=== PATIENT | male | born 1935 | race Caucasian/White ===

== ENCOUNTER 2018-11-27 15:39 | Emergency (ER) | payer MEDICARE ==
[2018-11-27] MEDS ORDERED: predniSONE 20 MG TAB ONE (16:14)
[2018-11-27] MEDS ORDERED: HYDROcodone/Acetaminophen 10/325 mg Tablet ONE (16:14)
[2018-11-27] MEDS ORDERED: Acetaminophen 500 MG TAB ONE (16:17)
--- NOTE | 2018-11-27 17:10 | RAD ---
TWO VIEWS RIGHT HIP: 11/27/18 HISTORY: Posterior right hip pain with onset of symptoms this morning. Patient pivoted and heard a popping armin nd. COMPARISON: None. FINDINGS: There is no evidence of a fracture or dislocation involving the right hip. 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 Vascular calcifications and phleboliths overlie the pelvis with vascul ar calcifications in the region of the femoral arteries. Degenerative changes seen involving the lowe r lumbar spine. IMPRESSION: No acute osseous abnormality right hip. POS: C
--- NOTE | 2018-11-27 19:03 | CT ---
CT OF PELVIS PERFORMED WITHOUT CONTRAST ENHANCEMENT: 11/27/18 HISTORY: Right hip pain after fall. The prostate is enlarged. There is some mild bladder wall thickening. No significant pelvic lymphaden opathy. The bones appear demineralized. There are marked arthritic changes in the lower lumbar spine. Severe disc narrowing at L4-5 and L5-S1. There is approximately 10 mm of spondylolisthesis of L4 on L5 and a pproximately 8 to 9 mm of L5 on S1. 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 There is an old injury related to the ischial tuberosity on the left. There are arthritic changes of both hips. T here is no signs of any right hip fracture. IMPRESSION: No evidence of acute fracture. Other findings as noted above. POS: DEREK
== END 2018-11-27 18:10 | disposition home or self-care (01) ==
LOC: SCSER 15:39
DX: M25.551 Pain in right hip (principal); I49.9 Cardiac arrhythmia, unspecified; I48.91 Unspecified atrial fibrillation; K21.9 Gastro-esophageal reflux disease without esophagitis; F32.9 Major depressive disorder, single episode, unspecified
CPT/HCPCS: 72192; J7512

== ENCOUNTER 2019-02-18 08:37 | Outpatient (CLI) | payer MEDICARE ==
--- NOTE | 2019-02-18 08:57 | RAD ---
Exam: Chest 2 views HISTORY:Dyspnea Comparison: 06/14/2015 FINDINGS: Lungs: Interstitial prominence, bilaterally. Cardiac silhouette:Stable Left-sided cardiac pacing device. Pulmonary vessels: Normal Pleural Spaces: Clear Pneumothorax: None Osseous abnormalities: None of acuity. IMPRESSION: No focal consolidation. Stable chest.
== END 2019-02-18 08:38 | disposition home or self-care (01) ==
LOC: RAD 08:37
PROVIDERS: ATTEND Internal Medicine Critical Care Medicine
DX: R06.00 Dyspnea, unspecified (principal)
CPT/HCPCS: 71046

== ENCOUNTER 2021-10-10 19:03 | Inpatient (IN) | payer MEDICARE ==
[2021-10-10] MEDS ORDERED: Ondansetron PF 4 MG/2 ML Vial ONE (19:16)
[2021-10-10] MEDS ORDERED: niCARdipine 25 MG/10 ML VIAL ONE (19:25)
[2021-10-10 19:40] LABS: #Eosinphils 0.2 thou/uL (0.0-0.7); #Lymphocytes 3.8 thou/uL (1.20-3.40); #Monocytes 0.6 thou/uL (0.11-0.59); #Neutrophils 3.8 thou/uL (1.40-6.50); %Basophils 0.4 % (0.0-1.0); %Eosinophils 2.5 % (0.0-10.0); %Lymphocytes 45.3 % (21.0-51.0); %Monocytes 7.1 % (0.0-10.0); %Neutrophils 44.8 % (42.0-75.0); Hemoglobin 11.9 g/dL (14.0-18.0); Mean Corpuscular Hemoglobin 32.8 pg (27.0-31.0); Mean Platelet Volume 7.2 fL (7.4-10.4); Platelet Count 239 thou/uL (130-400); RBC Distribution Width 13.1 % (11.5-14.5); Red Blood Cell (RBC) Count 3.63 mill/uL (4.70-6.10); White Blood Cell (WBC) Count 8.4 thou/uL (4.8-10.8)
[2021-10-10] MEDS ORDERED: ADMIXTURE FEE IV SCH (19:45)
[2021-10-10] MEDS ORDERED: HUMAN PROTHROMBIN COMPLX IV SCH (19:45)
[2021-10-10 19:49] LABS: INR-International Normal Ratio 1.2; PTT 26.5 sec (22.9-36.1); Prothrombin Time 15.3 sec (12.0-14.7)
[2021-10-10] MEDS ORDERED: Succinylcholine 200 MG/10 ml SYRINGE FS ONE (19:54)
[2021-10-10] MEDS ORDERED: Rocuronium Bromide 10 MG/ML (10ML VIAL) ONE (20:00)
[2021-10-10] MEDS ORDERED: fentaNYL Citrate/PF 100 MCG/2 ML SYRINGE ONE (20:05)
[2021-10-10 20:06] LABS: CK (CPK) 90 U/L (30-200); Magnesium 1.9 mg/dL (1.6-2.6)
[2021-10-10 20:08] LABS: ALT (SGPT) 12 U/L (8-55); AST (SGOT) 24 U/L (5-34); Albumin 4.2 g/dL (3.4-4.8); Alkaline Phosphatase 116 U/L (40-110); Anion Gap 19 mmol/L (10-20); BUN (Urea Nitrogen) 20 mg/dL (8.4-25.7); Bilirubin, Total 0.8 mg/dL (0.2-1.2); Calc. Creatinine Clearance 0 mL/min (70-130); Calcium 9.8 mg/dL (7.8-10.44); Carbon Dioxide 21 mmol/L (23-31); Chloride 103 mmol/L (98-107); Estimated GFR 78; Globulin 3.6 g/dL (2.4-3.5); Glucose 143 mg/dL (83-110); Potassium 3.4 mmol/L (3.5-5.1); Protein, Total 7.8 g/dL (5.8-8.1); Sodium 140 mmol/L (136-145)
[2021-10-10] MEDS ORDERED: Propofol 1,000 MG/100 ML VIAL IV ONE (20:10)
[2021-10-10] MEDS ORDERED: Bupivacaine 0.25% HCL 30 ML VIAL ONE (20:15)
[2021-10-10] MEDS ORDERED: Lidocaine 1% w/Epinephrine 1:100K 20 ML VIAL ONE (20:15)
[2021-10-10] MEDS ORDERED: Thrombin 5000 UNITS/5 ML VIAL ONE (20:15)
[2021-10-10] MEDS ORDERED: Bacitracin Zinc Ointment 30 gm TUBE ONE (20:15)
[2021-10-10] MEDS ORDERED: Phenylephrine 10 MG/ML VIAL ONE (20:20)
[2021-10-10] MEDS ORDERED: Lidocaine 0.5%/Epinephrine 1:200,000 50 ml Vial ONE ×2 (20:25→23:06)
[2021-10-10] MEDS ORDERED: Potassium Chloride 20 MEQ/100 ML PREMIX BAG ONE (20:28)
[2021-10-10] MEDS ORDERED: Insulin Regular 300 UNITS/3 ML VIAL SC PRN (20:57)
[2021-10-10] MEDS ORDERED: Dextrose 5% in Water 1,000 ML IV PRN (20:57)
[2021-10-10] MEDS ORDERED: Dextrose 50% Abboject 50 ML SYRINGE SLOW IVP PRN (20:57)
[2021-10-10] MEDS ORDERED: hydrALAZINE 20 MG/ML VIAL SLOW IVP PRN (20:57)
[2021-10-10] MEDS ORDERED: Ondansetron PF 4 MG/2 ML Vial IVP PRN (20:57)
[2021-10-10] MEDS ORDERED: fentaNYL Citrate-0.9 % NaCl/PF 100 ML IV SCH (21:15)
[2021-10-10] MEDS ORDERED: Fentanyl BOLUS 250 ML IVPB PRN (21:15)
[2021-10-10] MEDS ORDERED: DISCONTINUE PREVIOUS NARCOTIC PAIN MEDICATIONS AND BENZODIAZEPINES FS SCH (21:15)
[2021-10-10] MEDS ORDERED: Propofol 1,000 MG/100 ML VIAL IV PRN (21:15)
[2021-10-10] MEDS ORDERED: Ventilator Sedation Protocol 1 EACH FS SCH (21:15)
[2021-10-10] MEDS ORDERED: Propofol BOLUS 1,000 MG/100 ML VIAL IV PRN (21:15)
[2021-10-10 23:04] LABS: Actual Bicarbonate (HCO3a) 22.5 mEq/L (22-28); Base Excess (BEa) -0.7 mEq/L (-2.0 to +3.0); CO2 Tension 32.4 mmHg (35.0-45.0); Calcium, Ionized (arterial) 1.15 mmol/L (1.12-1.30); Carboxyhemoglobin (COHb) 0.1 gm% (0.0-3.0); Hemoglobin (Hb) 11.3 g/dL (14.0-18.0); O2 Tension (PaO2), arterial 362.1 mmHg (> 60.0); Potassium - ABG Lab 4.22 mmol/L (3.70-5.30); pH, Arterial 7.46 (7.35-7.45)
[2021-10-10 23:08] LABS: Puncture Site LBR
[2021-10-11] MEDS: Famotidine/PF 20 mg/2ml Vial SLOW IVP SCH ×3 (00:30→20:30)
[2021-10-11] MEDS: Acetaminophen 500 MG TAB PO SCH ×6 (00:30→23:24)
[2021-10-11] MEDS: Sodium Chloride 0.9% 1,000 ML IV SCH ×3 (00:31→12:46)
[2021-10-11 01:49] LABS: Bilirubin Negative (Negative); Blood, Urine 3+ (Negative); Clarity Turbid (Clear); Glucose, Urine (Dipstick) Normal (Negative); Ketone, Urine 10 mg/dL (Negative); Leukocyte Negative Leu/uL (Negative); Nitrite Negative (Negative); Protein, Urine (Dipstick) 50 mg/dL (Neg-Trace); RBC/HPF Greater than 50 HPF (0-3); Specific Gravity, Urine 1.025 (1.002-1.036); Squamous Epithelial 0-3 HPF (0-3); Urobilinogen Normal mg/dL (Less than 2); WBC/HPF 21-50 HPF (0-3); pH, Urine 5.5 (5.0-9.0)
[2021-10-11 01:58] LABS: Bacteria/HPF 1+ HPF (None Seen)
[2021-10-11 01:59] LABS: Urine Culture Reflex Yes Yes
[2021-10-11] MEDS ORDERED: Sodium Chloride 0.9% 500 ML IV SCH (02:30)
[2021-10-11 04:05] LABS: #Lymphocytes 1.1 thou/uL (1.20-3.40); #Monocytes 0.8 thou/uL (0.11-0.59); #Neutrophils 6.7 thou/uL (1.40-6.50); %Eosinophils 0.3 % (0.0-10.0); %Lymphocytes 12.9 % (21.0-51.0); %Monocytes 9.7 % (0.0-10.0); %Neutrophils 77.1 % (42.0-75.0); Hemoglobin 10.3 g/dL (14.0-18.0); Mean Corpuscular HGB CONC 32.4 g/dL (32.0-36.0); Mean Corpuscular Hemoglobin 33.4 pg (27.0-31.0); Mean Platelet Volume 7.6 fL (7.4-10.4); Platelet Count 204 thou/uL (130-400); Red Blood Cell (RBC) Count 3.09 mill/uL (4.70-6.10); White Blood Cell (WBC) Count 8.7 thou/uL (4.8-10.8)
[2021-10-11 04:12] LABS: INR-International Normal Ratio 1.2; PTT 30.6 sec (22.9-36.1); Prothrombin Time 14.9 sec (12.0-14.7)
[2021-10-11 04:26] LABS: Anion Gap 15 mmol/L (10-20); BUN (Urea Nitrogen) 21 mg/dL (8.4-25.7); Calc. Creatinine Clearance 60 mL/min (70-130); Calcium 8.8 mg/dL (7.8-10.44); Carbon Dioxide 23 mmol/L (23-31); Chloride 104 mmol/L (98-107); Estimated GFR 84; Glucose 141 mg/dL (83-110); Magnesium 1.8 mg/dL (1.6-2.6); Phosphorus 3.6 mg/dL (2.3-4.7); Potassium 4.3 mmol/L (3.5-5.1); Sodium 138 mmol/L (136-145)
[2021-10-11] MEDS: CEFAZOLIN 2 GM in Sodium Chloride 0.9% 100 ML IVPB SCH ×3 (05:16→21:11)
[2021-10-11 06:31] LABS: SARS-CoV-2 NAA Rapid Test Not Detected (NotDetected)
[2021-10-11] MEDS: hydrALAZINE 20 MG/ML VIAL SLOW IVP PRN ×2 (07:09→11:02)
[2021-10-11 07:37] LABS: Actual Bicarbonate (HCO3a) 23.2 mEq/L (22-28); Base Excess (BEa) -1.1 mEq/L (-2.0 to +3.0); CO2 Tension 37.2 mmHg (35.0-45.0); Calcium, Ionized (arterial) 1.11 mmol/L (1.12-1.30); Carboxyhemoglobin (COHb) 0.2 gm% (0.0-3.0); Hemoglobin (Hb) 11.7 g/dL (14.0-18.0); O2 Tension (PaO2), arterial 128.6 mmHg (> 60.0); Potassium - ABG Lab 4.05 mmol/L (3.70-5.30); pH, Arterial 7.41 (7.35-7.45)
[2021-10-11 08:01] LABS: Puncture Site RRA
[2021-10-11] MEDS: Senokot S 8.6-50 MG TAB PO SCH ×2 (09:08→20:30)
[2021-10-11] MEDS: Polyethylene Glycol 3350 17 GM Packet PO SCH (09:08)
[2021-10-11] MEDS ORDERED: Furosemide 20 MG/2 ML VIAL SLOW IVP SCH (15:30)
[2021-10-11] MEDS ORDERED: Morphine 2 MG/ML VIAL SLOW IVP PRN (20:44)
[2021-10-11] MEDS ORDERED: Morphine 4 MG/ML VIAL SLOW IVP PRN (20:44)
[2021-10-12] MEDS: hydrALAZINE 20 MG/ML VIAL SLOW IVP PRN ×2 (02:06→06:22)
[2021-10-12] MEDS: Acetaminophen 500 MG TAB PO SCH ×2 (05:31→19:27)
[2021-10-12] MEDS: Sodium Chloride 0.9% 1,000 ML IV SCH (06:30)
[2021-10-12 07:14] LABS: #Eosinphils 0.1 thou/uL (0.0-0.7); #Lymphocytes 1.3 thou/uL (1.20-3.40); #Monocytes 1.1 thou/uL (0.11-0.59); #Neutrophils 5.8 thou/uL (1.40-6.50); %Basophils 0.5 % (0.0-1.0); %Eosinophils 0.9 % (0.0-10.0); %Lymphocytes 16.2 % (21.0-51.0); %Monocytes 12.8 % (0.0-10.0); %Neutrophils 69.6 % (42.0-75.0); Hemoglobin 9.6 g/dL (14.0-18.0); Mean Corpuscular HGB CONC 32.2 g/dL (32.0-36.0); Mean Corpuscular Hemoglobin 32.9 pg (27.0-31.0); Platelet Count 174 thou/uL (130-400); Red Blood Cell (RBC) Count 2.92 mill/uL (4.70-6.10); White Blood Cell (WBC) Count 8.3 thou/uL (4.8-10.8)
[2021-10-12 07:41] LABS: Anion Gap 14 mmol/L (10-20); BUN (Urea Nitrogen) 15 mg/dL (8.4-25.7); Calc. Creatinine Clearance 76 mL/min (70-130); Calcium 8.5 mg/dL (7.8-10.44); Carbon Dioxide 23 mmol/L (23-31); Chloride 106 mmol/L (98-107); Estimated GFR 89; Glucose 107 mg/dL (83-110); Magnesium 1.7 mg/dL (1.6-2.6); Phosphorus 2.5 mg/dL (2.3-4.7); Potassium 3.3 mmol/L (3.5-5.1); Sodium 140 mmol/L (136-145)
[2021-10-12] MEDS ORDERED: Potassium Phosphate 30 MMOL, Magnesium Sulfate 3 GM in Sodium Chloride 0.9% 250 ML 250 ML IVPB SCH (09:00)
[2021-10-12] MEDS ORDERED: Magnesium 2 GM/50 ML(in water) 3 GM in Premix Bag 1 BAG IVPB SCH (09:00)
[2021-10-12] MEDS ORDERED: Amlodipine 5 MG TAB PO SCH (09:00)
[2021-10-12] MEDS ORDERED: Furosemide 20 MG/2 ML VIAL SLOW IVP SCH (09:30)
[2021-10-12] MEDS ORDERED: Tamsulosin HCl 0.4 MG CAP PO SCH (09:45)
[2021-10-12] MEDS: Famotidine/PF 20 mg/2ml Vial SLOW IVP SCH (10:16)
[2021-10-12] MEDS: Polyethylene Glycol 3350 17 GM Packet PO SCH (10:17)
[2021-10-12] MEDS: Senokot S 8.6-50 MG TAB PO SCH ×2 (19:25→21:25)
[2021-10-12] MEDS ORDERED: Acetaminophen 500 MG TAB PO SCH ×2 (19:56→20:15)
[2021-10-12] MEDS ORDERED: Morphine 2 MG/ML VIAL SLOW IVP PRN (19:57)
[2021-10-12] MEDS: Carvedilol 6.25 MG TAB PO SCH (21:25)
[2021-10-13 06:19] LABS: #Eosinphils 0.2 thou/uL (0.0-0.7); #Lymphocytes 1.4 thou/uL (1.20-3.40); #Monocytes 1.1 thou/uL (0.11-0.59); #Neutrophils 5.6 thou/uL (1.40-6.50); %Basophils 0.5 % (0.0-1.0); %Eosinophils 2.2 % (0.0-10.0); %Lymphocytes 17.1 % (21.0-51.0); %Monocytes 12.7 % (0.0-10.0); %Neutrophils 67.5 % (42.0-75.0); Hemoglobin 9.8 g/dL (14.0-18.0); Mean Corpuscular HGB CONC 32.4 g/dL (32.0-36.0); Mean Corpuscular Hemoglobin 33.3 pg (27.0-31.0); Mean Platelet Volume 7.3 fL (7.4-10.4); Platelet Count 175 thou/uL (130-400); Red Blood Cell (RBC) Count 2.94 mill/uL (4.70-6.10); White Blood Cell (WBC) Count 8.3 thou/uL (4.8-10.8)
[2021-10-13 06:43] LABS: Anion Gap 14 mmol/L (10-20); BUN (Urea Nitrogen) 13 mg/dL (8.4-25.7); Calc. Creatinine Clearance 77 mL/min (70-130); Calcium 8.7 mg/dL (7.8-10.44); Carbon Dioxide 26 mmol/L (23-31); Chloride 102 mmol/L (98-107); Estimated GFR 90; Glucose 99 mg/dL (83-110); Magnesium 2.1 mg/dL (1.6-2.6); Phosphorus 2.1 mg/dL (2.3-4.7); Potassium 3.4 mmol/L (3.5-5.1); Sodium 139 mmol/L (136-145)
[2021-10-13] MEDS ORDERED: Potassium Phosphate 30 MMOL in Sodium Chloride 0.9% 250 ML 250 ML IVPB SCH (09:00)
[2021-10-13] MEDS: Donepezil HCl 10 MG TAB PO SCH (09:28)
[2021-10-13] MEDS: Atorvastatin Calcium 20 MG TAB PO SCH (09:28)
[2021-10-13] MEDS: Tamsulosin HCl 0.4 MG CAP PO SCH (09:28)
[2021-10-13] MEDS: Venlafaxine HCl XR 150 MG CAP PO SCH (09:28)
[2021-10-13] MEDS: Senokot S 8.6-50 MG TAB PO SCH ×2 (09:28→20:27)
[2021-10-13] MEDS: Carvedilol 6.25 MG TAB PO SCH ×2 (09:29→20:28)
[2021-10-13] MEDS: Losartan 25 MG TAB PO SCH (09:45)
[2021-10-13] MEDS: Polyethylene Glycol 3350 17 GM Packet PO SCH (12:56)
[2021-10-13] MEDS: hydrALAZINE 20 MG/ML VIAL SLOW IVP PRN ×2 (16:46→20:25)
[2021-10-14] MEDS: Acetaminophen 500 MG TAB PO SCH ×4 (00:51→17:14)
[2021-10-14] MEDS: hydrALAZINE 20 MG/ML VIAL SLOW IVP PRN (01:17)
[2021-10-14 03:50] LABS: #Eosinphils 0.2 thou/uL (0.0-0.7); #Lymphocytes 1.3 thou/uL (1.20-3.40); #Monocytes 0.8 thou/uL (0.11-0.59); #Neutrophils 5.1 thou/uL (1.40-6.50); %Basophils 0.5 % (0.0-1.0); %Eosinophils 2.3 % (0.0-10.0); %Lymphocytes 17.3 % (21.0-51.0); %Monocytes 10.6 % (0.0-10.0); %Neutrophils 69.3 % (42.0-75.0); Mean Corpuscular HGB CONC 32.5 g/dL (32.0-36.0); Mean Corpuscular Hemoglobin 33.3 pg (27.0-31.0); Mean Platelet Volume 7.1 fL (7.4-10.4); Platelet Count 185 thou/uL (130-400); Red Blood Cell (RBC) Count 3.01 mill/uL (4.70-6.10); White Blood Cell (WBC) Count 7.4 thou/uL (4.8-10.8)
[2021-10-14 04:15] LABS: Anion Gap 14 mmol/L (10-20); BUN (Urea Nitrogen) 17 mg/dL (8.4-25.7); Calc. Creatinine Clearance 82 mL/min (70-130); Calcium 9.1 mg/dL (7.8-10.44); Carbon Dioxide 23 mmol/L (23-31); Chloride 103 mmol/L (98-107); Estimated GFR 91; Glucose 100 mg/dL (83-110); Phosphorus 2.8 mg/dL (2.3-4.7); Potassium 3.9 mmol/L (3.5-5.1); Sodium 136 mmol/L (136-145)
[2021-10-14] MEDS: Tamsulosin HCl 0.4 MG CAP PO SCH (08:28)
[2021-10-14] MEDS: Losartan 25 MG TAB PO SCH (08:28)
[2021-10-14] MEDS: Venlafaxine HCl XR 150 MG CAP PO SCH (08:28)
[2021-10-14] MEDS: Carvedilol 6.25 MG TAB PO SCH ×2 (08:28→21:37)
[2021-10-14] MEDS: Atorvastatin Calcium 20 MG TAB PO SCH (08:28)
[2021-10-14] MEDS: Donepezil HCl 10 MG TAB PO SCH (08:28)
[2021-10-14] MEDS: Senokot S 8.6-50 MG TAB PO SCH ×2 (08:29→21:37)
[2021-10-14] MEDS: Polyethylene Glycol 3350 17 GM Packet PO SCH (08:29)
[2021-10-15] MEDS: Acetaminophen 500 MG TAB PO SCH ×4 (00:24→19:45)
[2021-10-15] MEDS: hydrALAZINE 20 MG/ML VIAL SLOW IVP PRN ×2 (01:43→21:10)
[2021-10-15] MEDS: Venlafaxine HCl XR 150 MG CAP PO SCH (07:52)
[2021-10-15] MEDS: Carvedilol 6.25 MG TAB PO SCH ×2 (07:53→21:39)
[2021-10-15] MEDS: Polyethylene Glycol 3350 17 GM Packet PO SCH (07:53)
[2021-10-15] MEDS: Donepezil HCl 10 MG TAB PO SCH (07:53)
[2021-10-15] MEDS: Losartan 25 MG TAB PO SCH (07:53)
[2021-10-15] MEDS: Atorvastatin Calcium 20 MG TAB PO SCH (07:53)
[2021-10-15] MEDS: Tamsulosin HCl 0.4 MG CAP PO SCH (07:53)
[2021-10-15] MEDS: Senokot S 8.6-50 MG TAB PO SCH ×2 (07:53→21:38)
[2021-10-16] MEDS: Acetaminophen 500 MG TAB PO SCH ×4 (00:04→17:21)
[2021-10-16] MEDS: hydrALAZINE 20 MG/ML VIAL SLOW IVP PRN (00:05)
[2021-10-16 04:18] LABS: Anion Gap 13 mmol/L (10-20); BUN (Urea Nitrogen) 19 mg/dL (8.4-25.7); Calc. Creatinine Clearance 77 mL/min (70-130); Calcium 9.1 mg/dL (7.8-10.44); Carbon Dioxide 24 mmol/L (23-31); Chloride 102 mmol/L (98-107); Estimated GFR 90; Glucose 127 mg/dL (83-110); Phosphorus 2.6 mg/dL (2.3-4.7); Potassium 3.6 mmol/L (3.5-5.1); Sodium 135 mmol/L (136-145)
[2021-10-16] MEDS: Carvedilol 6.25 MG TAB PO SCH ×2 (09:29→20:37)
[2021-10-16] MEDS: Senokot S 8.6-50 MG TAB PO SCH ×2 (09:30→22:38)
[2021-10-16] MEDS: Atorvastatin Calcium 20 MG TAB PO SCH (09:30)
[2021-10-16] MEDS: Donepezil HCl 10 MG TAB PO SCH (09:30)
[2021-10-16] MEDS: Tamsulosin HCl 0.4 MG CAP PO SCH (09:30)
[2021-10-16] MEDS: Venlafaxine HCl XR 150 MG CAP PO SCH (09:30)
[2021-10-16] MEDS: Polyethylene Glycol 3350 17 GM Packet PO SCH (09:31)
[2021-10-17] MEDS: Acetaminophen 500 MG TAB PO SCH ×4 (01:20→17:02)
[2021-10-17 04:03] LABS: Anion Gap 13 mmol/L (10-20); BUN (Urea Nitrogen) 18 mg/dL (8.4-25.7); Calc. Creatinine Clearance 79 mL/min (70-130); Calcium 8.8 mg/dL (7.8-10.44); Carbon Dioxide 25 mmol/L (23-31); Chloride 100 mmol/L (98-107); Estimated GFR 90; Glucose 107 mg/dL (83-110); Magnesium 1.9 mg/dL (1.6-2.6); Phosphorus 2.7 mg/dL (2.3-4.7); Potassium 3.7 mmol/L (3.5-5.1); Sodium 134 mmol/L (136-145)
[2021-10-17] MEDS: Senokot S 8.6-50 MG TAB PO SCH ×2 (08:09→20:26)
[2021-10-17] MEDS: Atorvastatin Calcium 20 MG TAB PO SCH (08:09)
[2021-10-17] MEDS: Venlafaxine HCl XR 150 MG CAP PO SCH (08:09)
[2021-10-17] MEDS: Carvedilol 6.25 MG TAB PO SCH ×2 (08:09→20:26)
[2021-10-17] MEDS: Tamsulosin HCl 0.4 MG CAP PO SCH (08:09)
[2021-10-17] MEDS: Polyethylene Glycol 3350 17 GM Packet PO SCH (08:09)
[2021-10-17] MEDS: Donepezil HCl 10 MG TAB PO SCH (08:09)
[2021-10-17] MEDS: Famotidine 20 MG TAB PO SCH (20:26)
[2021-10-18] MEDS: Acetaminophen 500 MG TAB PO SCH ×4 (00:12→17:43)
[2021-10-18] MEDS: Tamsulosin HCl 0.4 MG CAP PO SCH (08:09)
[2021-10-18] MEDS: Atorvastatin Calcium 20 MG TAB PO SCH (08:09)
[2021-10-18] MEDS: Senokot S 8.6-50 MG TAB PO SCH ×2 (08:09→21:12)
[2021-10-18] MEDS: Donepezil HCl 10 MG TAB PO SCH (08:09)
[2021-10-18] MEDS: Polyethylene Glycol 3350 17 GM Packet PO SCH (08:10)
[2021-10-18] MEDS: Carvedilol 6.25 MG TAB PO SCH ×2 (08:10→21:12)
[2021-10-18] MEDS: Venlafaxine HCl XR 150 MG CAP PO SCH (08:10)
[2021-10-18] MEDS: Famotidine 20 MG TAB PO SCH (08:10)
[2021-10-18 12:24] VITALS: BMI 23.8
[2021-10-19] MEDS: Acetaminophen 500 MG TAB PO SCH ×3 (01:16→12:25)
[2021-10-19] MEDS: Carvedilol 6.25 MG TAB PO SCH (09:18)
[2021-10-19] MEDS: Atorvastatin Calcium 20 MG TAB PO SCH (09:18)
[2021-10-19] MEDS: Tamsulosin HCl 0.4 MG CAP PO SCH (09:18)
[2021-10-19] MEDS: Donepezil HCl 10 MG TAB PO SCH (09:19)
[2021-10-19] MEDS: Venlafaxine HCl XR 150 MG CAP PO SCH (09:19)
[2021-10-19] MEDS: Polyethylene Glycol 3350 17 GM Packet PO SCH (09:19)
[2021-10-19] MEDS: Senokot S 8.6-50 MG TAB PO SCH (09:20)
[2021-10-19 11:19] VITALS: TEMP 98.7
[2021-10-19 15:52] VITALS: BP 134/66
== END 2021-10-19 17:45 | DRG 25 ==
LOC: ERS 19:03 → SDC/OP 21:13 → CCU 22:21 → SJJU 10-12 11:24 → IMCU/EMU 10-13 14:59
PROVIDERS: ADMIT Surgery; ATTEND Surgery
PROC: 00C40ZZ Extirpation of Matter from Intracranial Subdural Space, Open Approach (ICD-10-PCS; principal; 2021-10-10)
PROC: 0D9670Z Drainage of Stomach with Drainage Device, Via Natural or Artificial Opening (ICD-10-PCS; 2021-10-10)
PROC: 0BH17EZ Insertion of Endotracheal Airway into Trachea, Via Natural or Artificial Opening (ICD-10-PCS; 2021-10-10)
PROC: 5A1935Z Respiratory Ventilation, Less than 24 Consecutive Hours (ICD-10-PCS; 2021-10-10)
DX: S06.5X9A Traumatic subdural hemorrhage with loss of consciousness of unspecified duration, initial encounter (principal); S06.A1XA Traumatic brain compression with herniation, initial encounter; J96.00 Acute respiratory failure, unspecified whether with hypoxia or hypercapnia; G81.94 Hemiplegia, unspecified affecting left nondominant side; D62 Acute posthemorrhagic anemia; F05 Delirium due to known physiological condition; Z20.822 Contact with and (suspected) exposure to COVID-19; I48.91 Unspecified atrial fibrillation; K21.9 Gastro-esophageal reflux disease without esophagitis; F32.A Depression, unspecified; R40.2362 Coma scale, best motor response, obeys commands, at arrival to emergency department; R40.2132 Coma scale, eyes open, to sound, at arrival to emergency department; R40.2242 Coma scale, best verbal response, confused conversation, at arrival to emergency department; I10 Essential (primary) hypertension; W18.30XA Fall on same level, unspecified, initial encounter; E87.6 Hypokalemia; E83.42 Hypomagnesemia; E83.39 Other disorders of phosphorus metabolism; Z98.890 Other specified postprocedural states; Z85.828 Personal history of other malignant neoplasm of skin; Z79.01 Long term (current) use of anticoagulants; Z90.89 Acquired absence of other organs; Z95.0 Presence of cardiac pacemaker; Z78.1 Physical restraint status; Z79.899 Other long term (current) drug therapy; Z88.5 Allergy status to narcotic agent; Y92.008 Other place in unspecified non-institutional (private) residence as the place of occurrence of the external cause; Z91.81 History of falling
CPT/HCPCS: 31500; 36415; 36416; 36600; 43762; 51702; 70450; 71045; 80048; 80053; 81001; 82550; 82805; 83735; 84100; 84443; 84484; 85025; 85610; 85730; 87086; 93005; 93306; 93970; 94002; 94003; 94640; 95819; 95957; 96365; 96375; C1713; G0390; J0360; J0690; J1940; J2001; J2270; J2370; J2405; J2704; J3370; J3475; J3480; J3490; J7030; J7050; J7168; J7620; P9045; S0020; S0028; U0003; U0005

== ENCOUNTER 2021-12-29 09:36 | Outpatient (CLI) | payer MEDICARE ==
[2021-12-29 13:04] LABS: #Basophils 0.1 10x3/uL (0.0-0.2); #Eosinphils 0.2 10x3/uL (0.0-0.5); #Monocytes 0.6 10x3/uL (0.0-1.1); #Neutrophils 2.6 10x3/uL (1.5-8.4); %Eosinophils 4.3 % (0.0-6.0); %Lymphocytes 32.7 % (18.0-47.0); %Monocytes 10.8 % (0.0-10.0); Hemoglobin 10.8 g/dL (13.5-17.5); Mean Corpuscular HGB CONC 31.9 g/dL (32.0-36.0); Mean Corpuscular Hemoglobin 30.7 pg (27.0-33.0); Mean Corpuscular Volume 96.3 fl (81.2-95.1); Platelet Count 195 10x3/uL (150-450); RBC Distribution Width 15.1 % (11.5-14.5); Red Blood Cell (RBC) Count 3.52 10x6/uL (4.32-5.72); White Blood Cell (WBC) Count 5.1 10x3/uL (3.5-10.5)
[2021-12-29 13:25] LABS: INR-International Normal Ratio 1.1
[2021-12-29 13:30] LABS: Anion Gap 15 mmol/L (10-20); BUN (Urea Nitrogen) 16 mg/dL (8.4-25.7); Calc. Creatinine Clearance 0 mL/min (70-130); Carbon Dioxide 25 mmol/L (23-31); Chloride 107 mmol/L (98-107); Estimated GFR 81; Glucose 85 mg/dL (83-110); Potassium 4.3 mmol/L (3.5-5.1); Sodium 143 mmol/L (136-145)
== END 2021-12-29 09:37 | disposition home or self-care (01) ==
LOC: LABBT 09:36
PROVIDERS: ATTEND Orthopaedic Surgery
DX: Z01.818 Encounter for other preprocedural examination (principal); M17.11 Unilateral primary osteoarthritis, right knee; Z20.822 Contact with and (suspected) exposure to COVID-19
CPT/HCPCS: 80048; 85025; 85610; 87081; 87811; 93005; 93010

== ENCOUNTER 2022-01-02 05:46 | Inpatient (IN) | payer MEDICARE ==
[2022-01-01 15:34] VITALS: BMI 24.4
[2022-01-02] MEDS ORDERED: fentaNYL Citrate/PF 100 MCG/2 ML SYRINGE ONE (06:17)
[2022-01-02] MEDS ORDERED: Midazolam HCl 2 mg/2 ml Vial ONE ×2 (06:17→06:35)
[2022-01-02] MEDS ORDERED: Vancomycin 1 GM/200 ML BAG ONE (06:23)
[2022-01-02] MEDS ORDERED: Tranexamic Acid 1,000 MG/10 ML VIAL ONE (06:23)
[2022-01-02] MEDS ORDERED: Sodium Chloride 0.9% 100 ML ONE ×2 (06:23→06:56)
[2022-01-02] MEDS ORDERED: Bupivacaine PF 0.5% 30 ML VIAL ONE (06:27)
[2022-01-02] MEDS ORDERED: Fentanyl 100 MCG/2 ML VIAL ONE (06:35)
[2022-01-02] MEDS ORDERED: Ondansetron PF 4 MG/2 ML Vial IVP PRN ×2 (06:46→07:45)
[2022-01-02] MEDS ORDERED: Zolpidem Tartrate 5 MG TAB PO PRN ×2 (06:46→07:45)
[2022-01-02] MEDS ORDERED: Promethazine HCl 25 MG/ML VIAL IM PRN ×3 (06:46→08:57)
[2022-01-02] MEDS ORDERED: diphenhydrAMINE 25 MG CAP PO PRN (06:46)
[2022-01-02] MEDS ORDERED: Acetaminophen 325 MG TAB PO PRN (06:46)
[2022-01-02] MEDS ORDERED: Fentanyl 100 MCG/2 ML VIAL SLOW IVP PRN (06:46)
[2022-01-02] MEDS ORDERED: traMADol HCl 50 MG TAB PO PRN ×4 (06:46→07:45)
[2022-01-02] MEDS ORDERED: CEFAZOLIN 2 GM VIAL ONE (06:56)
[2022-01-02] MEDS ORDERED: Fentanyl 100 MCG/2 ML VIAL IV PRN (07:43)
[2022-01-02] MEDS ORDERED: HYDROcodone/Acetaminophen 10/325 mg Tablet PO PRN ×2 (07:45)
[2022-01-02] MEDS ORDERED: Ropivacaine 0.2% 550 ML 550 ML NERVE BLCK SCH (07:45)
[2022-01-02] MEDS ORDERED: Bupivacaine HCl 0.5%/Epinephrine 1:200,000/PF 30 ml Vial ONE (07:49)
[2022-01-02] MEDS ORDERED: PROPOFOL 200 MG/20 ML VIAL ONE (07:49)
[2022-01-02] MEDS ORDERED: Ondansetron HCl/PF 4 MG/2 ML Vial IVP PRN (08:57)
[2022-01-02] MEDS ORDERED: Promethazine HCl 25 MG/ML VIAL IVPB PRN (08:57)
[2022-01-02] MEDS ORDERED: Non-Formulary Item 1 EACH (Desvenlafaxine [Desvenlafaxine Er] 100 MG Tab.Er.24h) PO SCH (09:00)
[2022-01-02] MEDS ORDERED: Non-Formulary Item 1 EACH (Omeprazole [Omeprazole] 20 MG Capsule.Dr) PO SCH (09:00)
[2022-01-02] MEDS: Aspirin 81 mg Enteric Coated Tablet PO SCH ×2 (09:26→21:19)
[2022-01-02] MEDS: Atorvastatin Calcium 20 MG TAB PO SCH (09:26)
[2022-01-02] MEDS: Sodium Chloride 0.9% 1,000 ML IV SCH ×2 (09:26→14:17)
[2022-01-02] MEDS: Ferrous Gluconate 324 MG TAB PO SCH ×2 (09:27→21:21)
[2022-01-02] MEDS: metFORMIN XR 500 MG TAB PO SCH ×2 (09:27→21:21)
[2022-01-02] MEDS: Multivitamin W/ Minerals 1 TAB PO SCH (09:28)
[2022-01-02] MEDS: Carvedilol 6.25 MG TAB PO SCH ×2 (10:05→21:20)
[2022-01-02] MEDS: Tamsulosin HCl 0.4 MG CAP PO SCH (10:11)
[2022-01-02] MEDS ORDERED: Tamsulosin HCl 0.4 MG CAP ONE (10:11)
[2022-01-02] MEDS: Donepezil HCl 10 MG TAB PO SCH (10:26)
[2022-01-02] MEDS: Venlafaxine HCl XR 150 MG CAP PO SCH (10:27)
[2022-01-02] MEDS: Ketorolac Tromethamine 30 MG/ML VIAL IVP SCH ×2 (12:12→19:26)
[2022-01-02] MEDS: Senokot S 8.6-50 MG TAB PO SCH ×2 (12:12→21:21)
[2022-01-02] MEDS ORDERED: Nystatin Powder 15 GM BOT TOP PRN (13:30)
[2022-01-02] MEDS ORDERED: HumaLOG 300 UNITS/3 ML VIAL SC PRN ×2 (13:41)
[2022-01-02] MEDS ORDERED: Dextrose 50% Abboject 50 ML SYRINGE SLOW IVP PRN (13:41)
[2022-01-02] MEDS ORDERED: Dextrose 5% in Water 1,000 ML IV PRN (13:41)
[2022-01-02] MEDS: CEFAZOLIN 2 GM in Sodium Chloride 0.9% 100 ML IVPB SCH ×2 (14:12→21:22)
[2022-01-02] MEDS: Nystatin Powder 15 GM BOT TOP SCH ×2 (16:12→21:30)
[2022-01-03] MEDS: Ketorolac Tromethamine 30 MG/ML VIAL IVP SCH ×5 (00:53→23:17)
[2022-01-03 06:24] LABS: Hemoglobin 8.9 g/dL (14.0-18.0); Mean Corpuscular HGB CONC 31.4 g/dL (32.0-36.0); Mean Corpuscular Hemoglobin 31.8 pg (27.0-31.0); Mean Platelet Volume 8.2 fL (7.4-10.4); Platelet Count 127 thou/uL (130-400); RBC Distribution Width 13.8 % (11.5-14.5); White Blood Cell (WBC) Count 5.8 thou/uL (4.8-10.8)
[2022-01-03] MEDS: Sodium Chloride 0.9% 1,000 ML IV SCH ×3 (09:24→23:50)
[2022-01-03] MEDS: Carvedilol 6.25 MG TAB PO SCH ×2 (10:19→22:36)
[2022-01-03] MEDS: Aspirin 81 mg Enteric Coated Tablet PO SCH ×2 (10:19→22:36)
[2022-01-03] MEDS: Nystatin Powder 15 GM BOT TOP SCH ×2 (10:19→22:38)
[2022-01-03] MEDS: metFORMIN XR 500 MG TAB PO SCH (11:26)
[2022-01-03] MEDS: Atorvastatin Calcium 20 MG TAB PO SCH (15:26)
[2022-01-03] MEDS: Donepezil HCl 10 MG TAB PO SCH (15:26)
[2022-01-03] MEDS: Ferrous Gluconate 324 MG TAB PO SCH ×2 (15:27→22:38)
[2022-01-03] MEDS: Multivitamin W/ Minerals 1 TAB PO SCH (15:27)
[2022-01-03] MEDS: Senokot S 8.6-50 MG TAB PO SCH ×2 (15:28→22:36)
[2022-01-03] MEDS: Tamsulosin HCl 0.4 MG CAP PO SCH (15:28)
[2022-01-03] MEDS: Venlafaxine HCl XR 150 MG CAP PO SCH (15:28)
[2022-01-04] MEDS: Ketorolac Tromethamine 30 MG/ML VIAL IVP SCH (05:51)
[2022-01-04 05:58] LABS: Hemoglobin 8.5 g/dL (14.0-18.0); Mean Corpuscular HGB CONC 31.1 g/dL (32.0-36.0); Mean Corpuscular Hemoglobin 31.9 pg (27.0-31.0); Mean Platelet Volume 8.7 fL (7.4-10.4); Platelet Count 111 thou/uL (130-400); RBC Distribution Width 13.8 % (11.5-14.5); Red Blood Cell (RBC) Count 2.65 mill/uL (4.70-6.10); White Blood Cell (WBC) Count 5.5 thou/uL (4.8-10.8)
[2022-01-04] MEDS: Atorvastatin Calcium 20 MG TAB PO SCH (08:40)
[2022-01-04] MEDS: Donepezil HCl 10 MG TAB PO SCH (08:40)
[2022-01-04] MEDS: Venlafaxine HCl XR 150 MG CAP PO SCH (08:40)
[2022-01-04] MEDS: Tamsulosin HCl 0.4 MG CAP PO SCH (08:40)
[2022-01-04] MEDS: Multivitamin W/ Minerals 1 TAB PO SCH (08:40)
[2022-01-04] MEDS: Ferrous Gluconate 324 MG TAB PO SCH ×2 (08:40→20:20)
[2022-01-04] MEDS: Senokot S 8.6-50 MG TAB PO SCH ×2 (08:40→20:20)
[2022-01-04] MEDS: Aspirin 81 mg Enteric Coated Tablet PO SCH ×2 (08:40→20:21)
[2022-01-04] MEDS: Nystatin Powder 15 GM BOT TOP SCH ×2 (08:41→20:29)
[2022-01-04] MEDS: Sodium Chloride 0.9% 1,000 ML IV SCH ×2 (08:41→20:26)
[2022-01-05] MEDS: Sodium Chloride 0.9% 1,000 ML IV SCH ×2 (05:18→16:40)
[2022-01-05 05:36] LABS: Hemoglobin 8.8 g/dL (14.0-18.0); Mean Corpuscular HGB CONC 31.6 g/dL (32.0-36.0); Mean Corpuscular Hemoglobin 32.3 pg (27.0-31.0); Mean Platelet Volume 8.7 fL (7.4-10.4); Platelet Count 127 thou/uL (130-400); RBC Distribution Width 13.6 % (11.5-14.5); Red Blood Cell (RBC) Count 2.73 mill/uL (4.70-6.10); White Blood Cell (WBC) Count 5.4 thou/uL (4.8-10.8)
[2022-01-05 05:39] LABS: Anion Gap 12 mmol/L (10-20); BUN (Urea Nitrogen) 38 mg/dL (8.4-25.7); Calc. Creatinine Clearance 50 mL/min (70-130); Calcium 8.4 mg/dL (7.8-10.44); Carbon Dioxide 20 mmol/L (23-31); Chloride 111 mmol/L (98-107); Estimated GFR 71; Glucose 98 mg/dL (83-110); Sodium 139 mmol/L (136-145)
[2022-01-05] MEDS: Carvedilol 6.25 MG TAB PO SCH ×2 (09:00→20:44)
[2022-01-05] MEDS: Donepezil HCl 10 MG TAB PO SCH (09:00)
[2022-01-05] MEDS: Tamsulosin HCl 0.4 MG CAP PO SCH (09:33)
[2022-01-05] MEDS: Ferrous Gluconate 324 MG TAB PO SCH ×2 (09:33→20:45)
[2022-01-05] MEDS: Venlafaxine HCl XR 150 MG CAP PO SCH (09:33)
[2022-01-05] MEDS: Nystatin Powder 15 GM BOT TOP SCH ×2 (09:33→21:14)
[2022-01-05] MEDS: Atorvastatin Calcium 20 MG TAB PO SCH (09:33)
[2022-01-05] MEDS: Aspirin 81 mg Enteric Coated Tablet PO SCH ×2 (09:33→20:44)
[2022-01-05] MEDS: Multivitamin W/ Minerals 1 TAB PO SCH (09:33)
[2022-01-05] MEDS: Senokot S 8.6-50 MG TAB PO SCH ×2 (09:33→20:45)
[2022-01-06] MEDS: Sodium Chloride 0.9% 1,000 ML IV SCH ×3 (01:05→20:32)
[2022-01-06 05:41] LABS: Hemoglobin 9.5 g/dL (14.0-18.0); Mean Corpuscular HGB CONC 32.1 g/dL (32.0-36.0); Mean Corpuscular Hemoglobin 32.6 pg (27.0-31.0); Mean Platelet Volume 8.4 fL (7.4-10.4); Platelet Count 141 thou/uL (130-400); RBC Distribution Width 13.6 % (11.5-14.5); Red Blood Cell (RBC) Count 2.92 mill/uL (4.70-6.10); White Blood Cell (WBC) Count 4.8 thou/uL (4.8-10.8)
[2022-01-06] MEDS: Venlafaxine HCl XR 150 MG CAP PO SCH (09:12)
[2022-01-06] MEDS: Multivitamin W/ Minerals 1 TAB PO SCH (09:12)
[2022-01-06] MEDS: Carvedilol 6.25 MG TAB PO SCH ×2 (09:12→20:21)
[2022-01-06] MEDS: Senokot S 8.6-50 MG TAB PO SCH ×2 (09:13→20:20)
[2022-01-06] MEDS: Atorvastatin Calcium 20 MG TAB PO SCH (09:13)
[2022-01-06] MEDS: Donepezil HCl 10 MG TAB PO SCH (09:13)
[2022-01-06] MEDS: Tamsulosin HCl 0.4 MG CAP PO SCH (09:13)
[2022-01-06] MEDS: Nystatin Powder 15 GM BOT TOP SCH ×2 (09:13→20:21)
[2022-01-06] MEDS: Aspirin 81 mg Enteric Coated Tablet PO SCH ×2 (09:13→20:20)
[2022-01-06] MEDS: Ferrous Gluconate 324 MG TAB PO SCH ×2 (09:13→20:20)
[2022-01-07] MEDS: Sodium Chloride 0.9% 1,000 ML IV SCH ×2 (02:47→18:05)
[2022-01-07 06:05] LABS: Mean Corpuscular HGB CONC 32.6 g/dL (32.0-36.0); Mean Corpuscular Hemoglobin 32.6 pg (27.0-31.0); Mean Corpuscular Volume 99.9 fL (78.0-98.0); Mean Platelet Volume 8.3 fL (7.4-10.4); Platelet Count 140 thou/uL (130-400); RBC Distribution Width 13.6 % (11.5-14.5); Red Blood Cell (RBC) Count 2.76 mill/uL (4.70-6.10); White Blood Cell (WBC) Count 4.7 thou/uL (4.8-10.8)
[2022-01-07] MEDS: Senokot S 8.6-50 MG TAB PO SCH ×2 (08:53→20:53)
[2022-01-07] MEDS: Aspirin 81 mg Enteric Coated Tablet PO SCH ×2 (08:53→20:52)
[2022-01-07] MEDS: Multivitamin W/ Minerals 1 TAB PO SCH (08:53)
[2022-01-07] MEDS: Ferrous Gluconate 324 MG TAB PO SCH ×2 (08:53→20:52)
[2022-01-07] MEDS: Carvedilol 6.25 MG TAB PO SCH ×2 (08:55→20:52)
[2022-01-07] MEDS: Donepezil HCl 10 MG TAB PO SCH (08:55)
[2022-01-07] MEDS: Tamsulosin HCl 0.4 MG CAP PO SCH (08:56)
[2022-01-07] MEDS: Nystatin Powder 15 GM BOT TOP SCH ×2 (08:56→21:21)
[2022-01-07] MEDS: Venlafaxine HCl XR 150 MG CAP PO SCH (08:56)
[2022-01-07] MEDS: Atorvastatin Calcium 20 MG TAB PO SCH (08:56)
[2022-01-08] MEDS: Sodium Chloride 0.9% 1,000 ML IV SCH ×3 (04:17→20:16)
[2022-01-08 05:42] LABS: Hemoglobin 9.2 g/dL (14.0-18.0); Mean Corpuscular HGB CONC 32.9 g/dL (32.0-36.0); Mean Corpuscular Hemoglobin 32.9 pg (27.0-31.0); Mean Platelet Volume 7.9 fL (7.4-10.4); Platelet Count 147 thou/uL (130-400); RBC Distribution Width 13.5 % (11.5-14.5)
[2022-01-08] MEDS: Ferrous Gluconate 324 MG TAB PO SCH ×2 (08:58→20:15)
[2022-01-08] MEDS: Aspirin 81 mg Enteric Coated Tablet PO SCH ×2 (08:58→20:15)
[2022-01-08] MEDS: Atorvastatin Calcium 20 MG TAB PO SCH (08:58)
[2022-01-08] MEDS: Tamsulosin HCl 0.4 MG CAP PO SCH (08:58)
[2022-01-08] MEDS: Carvedilol 6.25 MG TAB PO SCH ×2 (08:59→20:16)
[2022-01-08] MEDS: Venlafaxine HCl XR 150 MG CAP PO SCH (08:59)
[2022-01-08] MEDS: Multivitamin W/ Minerals 1 TAB PO SCH (09:00)
[2022-01-08] MEDS: Donepezil HCl 10 MG TAB PO SCH (09:02)
[2022-01-08] MEDS: Nystatin Powder 15 GM BOT TOP SCH ×2 (09:03→20:16)
[2022-01-08] MEDS: Senokot S 8.6-50 MG TAB PO SCH ×2 (09:04→20:16)
[2022-01-09] MEDS: Atorvastatin Calcium 20 MG TAB PO SCH (08:20)
[2022-01-09] MEDS: Carvedilol 6.25 MG TAB PO SCH ×2 (08:20→20:05)
[2022-01-09] MEDS: Senokot S 8.6-50 MG TAB PO SCH ×2 (08:20→20:05)
[2022-01-09] MEDS: Tamsulosin HCl 0.4 MG CAP PO SCH (08:20)
[2022-01-09] MEDS: Venlafaxine HCl XR 150 MG CAP PO SCH (08:20)
[2022-01-09] MEDS: Aspirin 81 mg Enteric Coated Tablet PO SCH ×2 (08:20→20:04)
[2022-01-09] MEDS: Ferrous Gluconate 324 MG TAB PO SCH ×2 (08:20→20:04)
[2022-01-09] MEDS: Multivitamin W/ Minerals 1 TAB PO SCH (08:20)
[2022-01-09] MEDS: Donepezil HCl 10 MG TAB PO SCH (08:21)
[2022-01-09] MEDS: Nystatin Powder 15 GM BOT TOP SCH ×2 (08:25→20:05)
[2022-01-09] MEDS: Sodium Chloride 0.9% 1,000 ML IV SCH ×2 (08:26→17:51)
[2022-01-10] MEDS: Sodium Chloride 0.9% 1,000 ML IV SCH (05:48)
[2022-01-10] MEDS: Aspirin 81 mg Enteric Coated Tablet PO SCH (09:01)
[2022-01-10] MEDS: Senokot S 8.6-50 MG TAB PO SCH (09:01)
[2022-01-10] MEDS: Ferrous Gluconate 324 MG TAB PO SCH (09:01)
[2022-01-10] MEDS: Carvedilol 6.25 MG TAB PO SCH (09:02)
[2022-01-10] MEDS: Donepezil HCl 10 MG TAB PO SCH (09:02)
[2022-01-10] MEDS: Venlafaxine HCl XR 150 MG CAP PO SCH (09:02)
[2022-01-10] MEDS: Tamsulosin HCl 0.4 MG CAP PO SCH (09:02)
[2022-01-10] MEDS: Multivitamin W/ Minerals 1 TAB PO SCH (09:02)
[2022-01-10] MEDS: Atorvastatin Calcium 20 MG TAB PO SCH (09:02)
[2022-01-10] MEDS: Nystatin Powder 15 GM BOT TOP SCH (09:03)
[2022-01-10 11:26] VITALS: BP 134/70; TEMP 98
== END 2022-01-10 12:45 | disposition home health service (06) | DRG 470 ==
LOC: SDC 05:46 → SURG A 06:47
PROVIDERS: ADMIT Orthopaedic Surgery; ATTEND Orthopaedic Surgery
PROC: 0SRC0J9 Replacement of Right Knee Joint with Synthetic Substitute, Cemented, Open Approach (ICD-10-PCS; principal; 2022-01-02)
DX: M17.11 Unilateral primary osteoarthritis, right knee (principal); G47.30 Sleep apnea, unspecified; I10 Essential (primary) hypertension; E78.5 Hyperlipidemia, unspecified; N40.0 Benign prostatic hyperplasia without lower urinary tract symptoms; I48.0 Paroxysmal atrial fibrillation; E11.9 Type 2 diabetes mellitus without complications; F03.90 Unspecified dementia, unspecified severity, without behavioral disturbance, psychotic disturbance, mood disturbance, and anxiety; D64.9 Anemia, unspecified; F32.A Depression, unspecified; Z88.6 Allergy status to analgesic agent; Z95.0 Presence of cardiac pacemaker; Z80.9 Family history of malignant neoplasm, unspecified; Z79.01 Long term (current) use of anticoagulants; Z86.73 Personal history of transient ischemic attack (TIA), and cerebral infarction without residual deficits
CPT/HCPCS: 36415; 36416; 70450; 80048; 85027; A4306; C1713; C1776; J0690; J1885; J2250; J2704; J2795; J3010; J3370; J3490; J7050; S0020

== ENCOUNTER 2022-06-08 11:18 | Outpatient (CLI) | payer MEDICARE | END 2022-06-08 11:19 | disposition home or self-care (01) | LOC: CT 11:18 | PROVIDERS: ATTEND Physician Assistant | DX: S06.5X0D Traumatic subdural hemorrhage without loss of consciousness, subsequent encounter (principal) | CPT/HCPCS: 70450 ==